=== PATIENT | female | born 1980 | race Two or more races ===

== ENCOUNTER → 2020-08-05 | Outpatient (CLI) | payer OTHER | END | disposition home or self-care (01) | LOC: PRENATAL 14:00 | PROVIDERS: ATTEND Obstetrics & Gynecology Maternal & Fetal Medicine | DX: Z36.89 Encounter for other specified antenatal screening (principal); O36.80X1 Pregnancy with inconclusive fetal viability, fetus 1; O09.522 Supervision of elderly multigravida, second trimester; Z3A.15 15 weeks gestation of pregnancy ==

== ENCOUNTER → 2020-09-10 | Outpatient (CLI) | payer OTHER | END | disposition home or self-care (01) | LOC: PRENATAL 13:00 | PROVIDERS: ATTEND Obstetrics & Gynecology Maternal & Fetal Medicine | DX: O35.0XX1 Maternal care for (suspected) central nervous system malformation in fetus, fetus 1 (principal); O35.3XX1 Maternal care for (suspected) damage to fetus from viral disease in mother, fetus 1; O98.512 Other viral diseases complicating pregnancy, second trimester; O09.522 Supervision of elderly multigravida, second trimester; Z36.89 Encounter for other specified antenatal screening; Z3A.20 20 weeks gestation of pregnancy ==

== ENCOUNTER 2020-12-30 07:37 | Outpatient (CLI) | payer OTHER | END 2020-12-30 09:19 | disposition home or self-care (01) | LOC: NST 07:37 | PROVIDERS: ATTEND Obstetrics & Gynecology | DX: Z34.03 Encounter for supervision of normal first pregnancy, third trimester (principal) ==

== ENCOUNTER 2021-01-06 07:47 | Outpatient (CLI) | payer OTHER | END 2021-01-06 12:13 | disposition home or self-care (01) | LOC: NST 07:47 | PROVIDERS: ATTEND Obstetrics & Gynecology | DX: Z34.83 Encounter for supervision of other normal pregnancy, third trimester (principal) ==

== ENCOUNTER 2021-01-23 07:35 | Outpatient (CLI) | payer OTHER ==
[2021-01-23] MEDS ORDERED: IRON325 MG PO (14:33)
== END 2021-01-23 08:57 | disposition home or self-care (01) ==
LOC: NST 07:35
PROVIDERS: ATTEND Obstetrics & Gynecology
DX: Z34.83 Encounter for supervision of other normal pregnancy, third trimester (principal)

== ENCOUNTER 2021-01-23 13:09 | Inpatient (IN) | payer OTHER ==
[~2021-01-23] VITALS: Ht 154.9 cm; Wt 2.7 kg
[2021-01-23] MEDS ORDERED: IRON325 MG PO (14:33)
[2021-01-28] MEDS ORDERED: DOCUSATE SODIU100 MG PO (07:57)
[2021-01-28] MEDS ORDERED: MACRODANTIN100 MG PO (07:57)
[2021-01-28] MEDS ORDERED: SIMETHICONE125 M1 PO (07:57)
[2021-01-28] MEDS ORDERED: PREPLUS CA-FE1 EACH PO (07:57)
[2021-01-28] MEDS ORDERED: IBUPROFEN800 MG PO (07:57)
== END 2021-01-28 10:46 | disposition home or self-care (01) | DRG 788 ==
LOC: OB/GYN 13:09 → LDR 13:09 → O/R 01-24 12:28 → OB/GYN 01-24 13:58
PROVIDERS: ADMIT Obstetrics & Gynecology; ATTEND Obstetrics & Gynecology
PROC: 3E0P7VZ Introduction of Hormone into Female Reproductive, Via Natural or Artificial Opening (ICD-10-PCS; 2021-01-24)
PROC: 3E033VJ Introduction of Other Hormone into Peripheral Vein, Percutaneous Approach (ICD-10-PCS; 2021-01-24)
PROC: 4A1HXFZ Monitoring of Products of Conception, Cardiac Rhythm, External Approach (ICD-10-PCS; 2021-01-24)
PROC: 10D00Z1 Extraction of Products of Conception, Low, Open Approach (ICD-10-PCS; principal; 2021-01-24 11:00)
DX: O62.1 Secondary uterine inertia (principal); O64.0XX0 Obstructed labor due to incomplete rotation of fetal head, not applicable or unspecified; O99.824 Streptococcus B carrier state complicating childbirth; Z37.0 Single live birth; Z3A.39 39 weeks gestation of pregnancy

== ENCOUNTER → 2021-01-23 | Outpatient (CLI) | payer OTHER ==
[~2021-01-23] MED LIST: DOCUSATE SODIU100 MG PO; IBUPROFEN800 MG PO; IRON325 MG PO; MACRODANTIN100 MG PO; PREPLUS CA-FE1 EACH PO; SIMETHICONE125 M1 PO
== END | disposition home or self-care (01) ==
LOC: PRENATAL 10:36
PROVIDERS: ATTEND Obstetrics & Gynecology Maternal & Fetal Medicine
DX: O26.843 Uterine size-date discrepancy, third trimester (principal); O36.8131 Decreased fetal movements, third trimester, fetus 1; O35.0XX1 Maternal care for (suspected) central nervous system malformation in fetus, fetus 1; O09.523 Supervision of elderly multigravida, third trimester; Z36.89 Encounter for other specified antenatal screening; Z3A.37 37 weeks gestation of pregnancy